=== PATIENT | female | born 1955 | race Caucasian/White ===

== ENCOUNTER 2022-07-15 16:00 | Outpatient (RCR) | payer BC, MEDICARE, SELFPAY | END 2022-08-29 16:38 | disposition home or self-care (01) | PROVIDERS: PCP Family Medicine; Visit Provider Family Medicine | DX: M54.50 Low back pain, unspecified (principal); Z51.89 Encounter for other specified aftercare | CPT/HCPCS: 97110; 97140; 97162 ==

== ENCOUNTER 2025-03-28 08:59 | Outpatient (CLI) | payer MEDICARE, BC, SELFPAY ==
--- NOTE | 2025-03-28 10:49 | P.ANES_ITS ---
Anesthesia Charges Start Date/Time Anesthesia Start Date: 03/28/25 Anesthesia Start Time: 10:12 Stop Date/Time Anesthesia Stop Date: 03/28/25 Anesthesia Stop Time: 10:47 Coding CPT Codes CPT Codes: TONYA LWR INTST NDSC NOS - 67070 ([id number]) P2 - PATIENT W/MILD SYST DISEASE, QK - TEST ANALYST 2-4 CNCRNT ANES PROC, QX - LOZENGE MAKER HELPER SVC W/ MD MED DIRECTION
--- NOTE | 2025-03-28 10:49 | W.ANESCHARGE ---
Anesthesia Charges Start Date/Time Anesthesia Start Date: 03/28/25 Anesthesia Start Time: 10:12 Stop Date/Time Anesthesia Stop Date: 03/28/25 Anesthesia Stop Time: 10:47 Coding CPT Codes CPT Codes: TONYA LWR INTST NDSC NOS - [id number] ([id number]) P2 - PATIENT W/MILD SYST DISEASE, QK - HOP SEPARATOR 2-4 CNCRNT ANES PROC, QX - STEWARD/STEWARDESS SECOND SVC W/ MD MED DIRECTION
--- NOTE | 2025-03-28 10:57 | P.ANES_ITS ---
Anesthesia Charges Start Date/Time Anesthesia Start Date: 03/28/25 Anesthesia Start Time: 10:12 Stop Date/Time Anesthesia Stop Date: 03/28/25 Anesthesia Stop Time: 10:47 Coding CPT Codes CPT Codes: TONYA LWR INTST NDSC NOS - [id number] ([id number]) QK - CRADLE PLACER 2-4 CNCRNT TONYA PROC, QX - BOTANY TECHNICIAN SVC W/ MD MED DIRECTION, P2 - PATIENT W/MILD SYST DISEASE
--- NOTE | 2025-03-28 10:57 | W.ANESCHARGE ---
Anesthesia Charges Start Date/Time Anesthesia Start Date: 03/28/25 Anesthesia Start Time: 10:12 Stop Date/Time Anesthesia Stop Date: 03/28/25 Anesthesia Stop Time: 10:47 Coding CPT Codes CPT Codes: TONYA LWR INTST NDSC NOS - [id number] ([id number]) QK - LAUNDRY PRESS OPERATOR 2-4 CNCRNT TONYA PROC, QX - CLOD PULLER SVC W/ MD MED DIRECTION, P2 - PATIENT W/MILD SYST DISEASE
== END 2025-03-28 09:00 | disposition home or self-care (01) ==
LOC: OP CLINIC 08:59
PROVIDERS: PCP Registered Nurse; Visit Provider Surgery
DX: Z12.11 Encounter for screening for malignant neoplasm of colon (principal); Z86.0100 Personal history of colon polyps, unspecified; D12.0 Benign neoplasm of cecum; D12.3 Benign neoplasm of transverse colon; D12.8 Benign neoplasm of rectum
CPT/HCPCS: 00811; 45385; 88305; J2704

== ENCOUNTER 2025-04-27 10:42 | Outpatient (CLI) | payer MEDICARE, BC, SELFPAY | END 2025-04-27 10:43 | disposition home or self-care (01) | LOC: NFLDREF 10:45 | PROVIDERS: PCP Registered Nurse; Visit Provider Registered Nurse | DX: Z00.00 Encounter for general adult medical examination without abnormal findings (principal); Z13.6 Encounter for screening for cardiovascular disorders | CPT/HCPCS: 80061 ==

== ENCOUNTER 2025-05-02 10:59 | Outpatient (CLI) | payer MEDICARE, BC, SELFPAY ==
--- NOTE | 2025-05-02 11:15 | CRLHL7_ITS ---
For Patients: As a result of the Century Cures Act, medical imaging exams and procedure reports are released immediately into your electronic medical record. You may view this report before your referring provider. If you have questions, please contact your health care provider. INDICATION: Localized edema COMPARISON: None. TECHNIQUE: A compression venous ultrasound exam was performed of the left lower extremity using weinstein-scale imaging, color Doppler and spectral Doppler analysis. FINDINGS: Sonographic imaging of the left lower extremity demonstrates normal compressibility and color Doppler venous blood flow within the common femoral vein, deep femoral vein, and the proximal greater saphenous vein. Within the thigh, the femoral vein is patent and compressible. At a lower level, the popliteal and posterior tibial veins also show normal compressibility and color Doppler venous blood flow. Limited imaging of the contralateral groin demonstrates a normal spectral waveform and color Doppler venous blood flow within the right common femoral vein. IMPRESSION: Normal venous ultrasound exam. No evidence of deep vein thrombosis within the left lower extremity. Dictated by Sergio Nelson MD @ 05/02/2025 11:59:14 AM (Electronically Signed)
== END 2025-05-02 11:00 | disposition home or self-care (01) ==
LOC: US 11:01
PROVIDERS: PCP Registered Nurse; Visit Provider Registered Nurse
DX: R60.0 Localized edema (principal)
CPT/HCPCS: 93971

== ENCOUNTER 2025-08-09 13:51 | Outpatient (CLI) | payer MEDICARE, BC, SELFPAY ==
--- NOTE | 2025-08-09 14:00 | CRLHL7_ITS ---
For Patients: As a result of the Century Cures Act, medical imaging exams and procedure reports are released immediately into your electronic medical record. You may view this report before your referring provider. If you have questions, please contact your health care provider. INDICATION: BILATERAL SCREENING MAMMOGRAM, ASYMPTOMATIC 70 Y/O F COMPARISON: 03/29/21, 05/24/15, 04/14/13 TECHNIQUE: Digital mammogram in CC and MLO projections including computer-aided detection (CAD) and tomosynthesis. BREAST COMPOSITION: The breasts are almost entirely fatty. FINDINGS: No suspicious findings. ASSESSMENT: BI-RADS 1 Negative RECOMMENDATION: Annual screening mammogram. A lay language report of this examination will be provided to the patient. Dictated by: Vilma Yañez MD @ 08/10/2025 12:28:25 (Electronically Signed)
== END 2025-08-09 13:52 | disposition home or self-care (01) ==
LOC: MAMMO 13:52
DX: Z12.31 Encounter for screening mammogram for malignant neoplasm of breast (principal)
CPT/HCPCS: 77063; 77067

== ENCOUNTER 2025-08-25 14:31 | Outpatient (CLI) | payer MEDICARE, BC, SELFPAY | END 2025-08-25 14:32 | disposition home or self-care (01) | PROVIDERS: Visit Provider Internal Medicine | DX: E11.9 Type 2 diabetes mellitus without complications (principal); E78.5 Hyperlipidemia, unspecified | CPT/HCPCS: 80053; 80061; 82043; 82570 ==